=== PATIENT | male | born 1940 | race Caucasian/White ===

== ENCOUNTER → 2016-10-25 | Outpatient (CLI) | payer MEDICARE ==
[2016-10-25 12:28] LABS: ALT 28 U/L (21-72); AST 26 U/L (17-59); Alkaline Phosphatase 68 U/L (38-126); Anion Gap 11 mmol/L; Blood Urea Nitrogen 20 mg/dL (9-20); Calcium 9.5 mg/dL (8.4-10.2); Carbon Dioxide 26 mmol/L (22-30); Chloride 106 mmol/L (98-107); Glucose 88 mg/dL (74-99); Non-African American GFR(MDRD) >60 (>60 ml/min/1.73 sqM); Potassium 4.7 mmol/L (3.5-5.1); Sodium 143 mmol/L (137-145); Total Bilirubin 1.2 mg/dL (0.2-1.3)
[2016-10-25 12:32] LABS: CHCM 33.5; HCT 45.8 % (39.0-53.0); HGB 15.6 gm/dL (13.0-17.5); MCH 32.8 pg (25.0-35.0); MCHC 34.1 g/dL (31.0-37.0); MCV 96.2 fL (80.0-100.0); Mean Platelet Volume 7.9; RBC 4.76 m/uL (4.30-5.90); RDW 13.7 % (11.5-15.5); WBC 6.5 k/uL (3.8-10.6)
[2016-10-25 13:17] LABS: Vitamin B12 635 pg/mL
[2016-10-25 14:45] LABS: Erythrocyte Sedimentation Rate 7 mm/hr (0-15)
== END | disposition home or self-care (01) ==
LOC: LABWHC1 11:55
PROVIDERS: ATTEND Psychiatry & Neurology Neurology
DX: E53.8 Deficiency of other specified B group vitamins (principal); M54.2 Cervicalgia; R26.89 Other abnormalities of gait and mobility
CPT/HCPCS: 36415; 80053; 82306; 82607; 84207; 85027; 85652

== ENCOUNTER → 2016-11-15 | Outpatient (CLI) | payer MEDICARE ==
--- NOTE | 2016-11-15 13:26 | MR ---
MRI CERVICAL SPINE: CLINICAL HISTORY: Cervicalgia and imbalance per order. Neck pain for several years causing weakness i n right arm. TECHNIQUE: Multiplanar, multisequence imaging of the cervical spine is performed without IV contrast. COMPARISON: MRI cervical spine November 01, 2012. FINDINGS: Sagittal images of the cervical spine show the craniocervical junction to appear within nor mal limits. The cervical and upper thoracic spinal cord is normal in course, caliber, and signal. V ertebral alignment is anatomic. The vertebral body heights are normal. There is persistent mild disc space narrowing at C5-C6 and C6-C7 levels. There are small posterior disc herniations redemonstrated at these levels on sagittal images effacing anterior thecal sac. The bone marrow signal intensity is within normal limits. Mild anterior spurring in the mid to lower cervical spine remains present. Axial images show the C2-C3 level to appear within normal limits. Axial images at the C3-C4 level show uncovertebral facet degenerative changes bilaterally contributin g to mild bilateral neural foraminal narrowing. There is tiny central disc protrusion mildly effacing anterior thecal sac on axial image 40, no significant change from prior study is seen. Axial images at C4-C5 level show some uncovertebral facet degenerative changes and marginal spurring causing mild left-sided neural foraminal narrowing. Spinal canal is preserved. Right-sided neural for amen is patent. No significant change from prior study is seen. Axial images at C5-C6 level show broad-based focal left paracentral disc protrusion effacing anterior thecal sac nearly up to ventral surface of spinal cord on axial image 25 more prominent than prior s tudy, there is asymmetric mild left-sided neural foraminal narrowing redemonstrated. Right-sided neur al foramen is patent. Axial images at C6-C7 level show focal left paracentral disc protrusion effacing anterior thecal sac with some indenting of ventral surface of spinal cord, this is not significantly changed from prior e xam. Bilateral neural foramina are patent. Axial images at C7-T1 level are within normal limits. Slightly prominent lymph nodes near left internal jugular vein in the mid to lower cervical spine are redemonstrated without significant change from prior study. 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 Some progression in disc herniation severity at C5-C6 level is suspected.
== END | disposition home or self-care (01) ==
LOC: RADMRIMAIN 11:02
PROVIDERS: ATTEND Psychiatry & Neurology Neurology
DX: M50.322 Other cervical disc degeneration at C5-C6 level (principal); M50.222 Other cervical disc displacement at C5-C6 level
CPT/HCPCS: 72141

== ENCOUNTER → 2018-05-14 | Outpatient (CLI) | payer MEDICARE ==
--- NOTE | 2018-05-14 21:54 | CT ---
EXAMINATION TYPE: CT chest w con DATE OF EXAM: 05/14/2018 COMPARISON: NONE HISTORY: Superior vena cava syndrome per order. CT DLP: 480 mGycm. Automated Exposure Control for Dose Reduction was Utilized. TECHNIQUE: CT scan of the thorax is performed following with IV Contrast, patient injected with 80ml mL of Isovue 300. FINDINGS: LUNGS: There is focal linear scarring or atelectasis in the left lung base just above the diaphragm. There is dependent atelectasis in the left lower lobe. There is less prominent linear scar or atelect asis laterally in the right lower lobe. No suspicious consolidation is identified. No concerning pare nchymal nodules or masses are seen. No pleural effusion or pneumothorax is noted bilaterally. Tracheo bronchial tree is patent. MEDIASTINUM: There are no greater than 1 cm hilar or mediastinal lymph nodes. No pericardial effusi on is seen. Heart size is upper limits of normal. SVC is patent without suspicious narrowing or anirudh cent mass causing mass effect. Some prominent draining collateral veins left supraclavicular region a re partially imaged. Ascending aorta measures up to 3.7 cm in diameter. OTHER: No additional significant abnormality is seen. IMPRESSION: No suspicious acute pulmonary process. Patent normal caliber SVC noted. No suspicious mas ses or adenopathy identified.
== END | disposition home or self-care (01) ==
LOC: RADCTMAIN 15:42
PROVIDERS: ATTEND Thoracic Surgery (Cardiothoracic Vascular Surgery)
DX: I82.210 Acute embolism and thrombosis of superior vena cava (principal)
CPT/HCPCS: 82565; 84520; 71260; 36415; Q9967

== ENCOUNTER → 2018-12-27 | Outpatient (CLI) | payer MEDICARE ==
[2018-12-27 08:41] LABS: HCT 48.3 % (39.0-53.0); HGB 16.2 gm/dL (13.0-17.5); MCH 32.8 pg (25.0-35.0); MCHC 33.5 g/dL (31.0-37.0); Mean Platelet Volume 7.7; Platelet Count 233 k/uL (150-450); RBC 4.93 m/uL (4.30-5.90); RDW 13.6 % (11.5-15.5); WBC 6.3 k/uL (3.8-10.6)
[2018-12-27 17:43] LABS: African American GFR (CKD) 66.7 (60.0-200.0); Albumin 4.6 g/dL (3.80-4.90); Albumin/Globulin Ratio 2.42 (1.60-3.17); Anion Gap 10.3 mmol/L (4.00-12.00); BUN/Creat Ratio 15.83 Ratio (12.00-20.00); Calcium 9.7 mg/dL (8.7-10.3); Carbon Dioxide 25.7 mmol/L (21.6-31.8); Globulin 1.9 g/dL (1.6-3.3); Potassium 5.2 mmol/L (3.5-5.5); Total Bilirubin 1.4 mg/dL (0.3-1.2); Total Protein 6.5 g/dL (6.2-8.2)
== END | disposition home or self-care (01) ==
LOC: LABWHC1 07:59
PROVIDERS: ATTEND Psychiatry & Neurology Neurology
DX: R53.83 Other fatigue (principal); E53.8 Deficiency of other specified B group vitamins
CPT/HCPCS: 36415; 80053; 82533; 82607; 84439; 84443; 85027

== ENCOUNTER → 2019-01-24 | Outpatient (CLI) | payer MEDICARE | END | disposition home or self-care (01) | LOC: LABWHC1 07:46 | PROVIDERS: ATTEND Psychiatry & Neurology Neurology | DX: R94.7 Abnormal results of other endocrine function studies (principal) | CPT/HCPCS: 36415; 82533 ==

== ENCOUNTER → 2020-01-16 | Outpatient (CLI) | payer MEDICARE ==
[2020-01-16 13:57] LABS: HCT 45.4 % (39.0-53.0); HGB 14.9 gm/dL (13.0-17.5); MCH 33.4 pg (25.0-35.0); MCHC 32.9 g/dL (31.0-37.0); MCV 101.4 fL (80.0-100.0); Macrocytosis Slight; Platelet Count 202 k/uL (150-450); RBC 4.48 m/uL (4.30-5.90); RDW 13.3 % (11.5-15.5); WBC 7.2 k/uL (3.8-10.6)
[2020-01-17 00:59] LABS: African American GFR (CKD) 73.6 (60.0-200.0); Albumin 4.4 g/dL (3.80-4.90); Albumin/Globulin Ratio 2.32 (1.60-3.17); Anion Gap 9.9 mmol/L (4.00-12.00); BUN/Creat Ratio 22.73 Ratio (12.00-20.00); Calcium 9.6 mg/dL (8.7-10.3); Carbon Dioxide 26.1 mmol/L (21.6-31.8); Globulin 1.9 g/dL (1.6-3.3); Non-African American GFR(CKD) 63.5 (60.0-200.0); Potassium 5.4 mmol/L (3.5-5.5); Total Bilirubin 0.8 mg/dL (0.3-1.2); Total Protein 6.3 g/dL (6.2-8.2)
[2020-01-17 01:07] LABS: T4, Free (Free Thyroxine) 1.1 ng/dL (0.80-1.80)
== END | disposition home or self-care (01) ==
LOC: LABWHC1 12:32
PROVIDERS: ATTEND Psychiatry & Neurology Neurology
DX: Z00.00 Encounter for general adult medical examination without abnormal findings (principal); R53.83 Other fatigue; E55.9 Vitamin D deficiency, unspecified
CPT/HCPCS: 36415; 80053; 82306; 82607; 84439; 84443; 85027

== ENCOUNTER → 2020-09-01 | Outpatient (CLI) | payer MEDICARE | END | disposition home or self-care (01) | LOC: LABWHC1 10:48 | PROVIDERS: ATTEND Ophthalmology | DX: I77.6 Arteritis, unspecified (principal) | CPT/HCPCS: 36415; 85652; 86140 ==

== ENCOUNTER 2023-11-28 14:36 | Emergency (ER) | payer MEDICARE ==
[2023-11-28] MEDS ORDERED: SODIUM CHLORIDE 0.9% 1,000 ML BAG ONE (16:30)
== END 2023-11-28 18:34 | disposition home or self-care (01) ==
LOC: EC 14:36
DX: R55 Syncope and collapse (principal)
CPT/HCPCS: 93005; 96360; 99284